=== PATIENT | female | born 1935 | race Caucasian/White ===

== ENCOUNTER → 2016-07-08 | Outpatient (CLI) | payer MEDICARE, OTHER ==
--- NOTE | 2016-07-08 17:32 | RAD ---
Indication low back pain. Axial images were obtained through the lumbar spine and reformatted in the coronal and sagittal planes. Note is made of a similar examination 05/12/2015. Again seen is a transitional segment. The lumbar segments will be referenced as they were on the previous exam. vertebral height is well maintained. There is no significant disc space narrowing seen at any level. There is vacuum disc phenomenon noted at L5-6, L4-5 and L3-4. This represents a new finding compared to the previous exam. Facet degenerative changes are noted in the lower lumbar spine. An acute finding is not seen. T12-L1 appears unremarkable. L1-2 appears normal. L2-3 appears unremarkable. There is no significant canal or neural foraminal narrowing at L3-4. At L4-5 there is some ligamentum flavum hypertrophy and there is slight disc bulging. There is no significant neural foraminal encroachment. There is probable minimal canal narrowing at this level. At L4-5 similar findings are seen. There is some ligamentum flavum hypertrophy and disc bulging again with suspected mild narrowing of the canal. The transitional segment from L6 through the sacrum is unremarkable. The lung bases are clear. There is a probable small adenoma seen associated with the right adrenal gland. A significant finding is not seen in the visualized abdomen or pelvis. IMPRESSION: Spondylitic changes. No acute findings seen. There is a transitional segment. Mild canal narrowing is likely in the lower lumbar spine. If additional imaging evaluation is warranted an MRI examination could be obtained PQRS Compliance Statement: One or more of the following individualized dose reduction techniques were utilized for this examination: 1. Automated exposure control 2. Adjustment of the mA and/or kV according to patient size 3. Use of iterative reconstruction technique
== END | disposition home or self-care (01) ==
LOC: CT 15:33
PROVIDERS: ATTEND Family Medicine
DX: M54.16 Radiculopathy, lumbar region (principal); M46.86 Other specified inflammatory spondylopathies, lumbar region; Z95.0 Presence of cardiac pacemaker
CPT/HCPCS: 72131

== ENCOUNTER → 2016-12-29 | Outpatient (CLI) | payer MEDICARE, OTHER ==
[2016-12-29 08:45] LABS: CALCIUM 9.3 mg/dL (8.5-10.1); CREATININE 0.8 mg/dL (0.6-1.0); POTASSIUM 4.3 mmol/L (3.5-5.1)
[2016-12-30 04:11] LABS: HEMOGLOBIN A1C 5.6 % (4.8-5.6)
== END | disposition home or self-care (01) ==
LOC: SPEC 07:53
PROVIDERS: ATTEND Family Medicine
DX: Z00.00 Encounter for general adult medical examination without abnormal findings (principal); E78.2 Mixed hyperlipidemia; E78.00 Pure hypercholesterolemia, unspecified
CPT/HCPCS: 36415; 80048; 80061; 82306; 83036

== ENCOUNTER → 2017-01-10 | Outpatient (CLI) | payer MEDICARE, OTHER ==
--- NOTE | 2017-01-11 08:27 | RAD ---
CT study of the cervical spine without contrast History: Radicular pain. Technique: Noncontrast helical CT scanning of the cervical spine was performed. Multiplanar 2-D reconstructions were generated. PQRS Compliance Statement: One or more of the following individualized dose reduction techniques were utilized for this examination: 1. Automated exposure control 2. Adjustment of the mA and/or kV according to patient size 3. Use of iterative reconstruction technique Comparison: None available. Findings: No acute fracture or discitis or osteolytic process or prevertebral soft tissue swelling is evident. No anterolisthesis is seen. No perching of facet joints is seen. There is mild degenerative osteoarthritis of the facet joints. There is mild degenerative disc space narrowing and endplate spurring at C4-5 and C5-6. No significant neural foraminal narrowing is seen. No significant focal disc protrusion is seen on this nonmyelographic study. No significant spinal canal stenosis is evident. IMPRESSION: Mild degenerative cervical spondylosis.
== END | disposition home or self-care (01) ==
LOC: CT 15:07
PROVIDERS: ATTEND Family Medicine
DX: M47.22 Other spondylosis with radiculopathy, cervical region (principal); M53.82 Other specified dorsopathies, cervical region
CPT/HCPCS: 72125

== ENCOUNTER → 2018-02-23 | Outpatient (CLI) | payer MEDICARE, OTHER ==
--- NOTE | 2018-02-23 16:42 | RAD ---
EXAM: CT lumbar spine without IV contrast CLINICAL HISTORY:LUMBAR STENOSIS, BILAT FEET TINGLING COMPARISON: None available. TECHNIQUE: Helical CT was performed through the lumbar spine. Axial, coronal and sagittal reformatted images were generated. PQRS compliance statement - One or more of the following individualized dose reduction techniques were utilized for this study: 1. Automated exposure control 2. Adjustment of the mA and/or kV according to patient size 3. Use of iterative reconstruction technique FINDINGS: For the purposes of this report, the very first vertebral body without residual be labeled T for transitional. Subsequently there are 5 nonrib-bearing lumbar-type vertebral bodies. Mild straightening of the normal lumbar lordosis. There is approximate 5 mm anterolisthesis of L4 on L5. This is new when compared to prior CT 07/08/2016. Vertebral body heights are preserved. Postoperative changes are seen at L4 with partial associated facet resection. Overlying soft tissue changes are seen. Mild L1-2 intervertebral disc height loss. L1-L2: No significant central canal stenosis or neural foraminal narrowing. L2-L3: Diffuse circumferential disc bulge and ligamentum flavum hypertrophy results in mild central canal stenosis without significant neural foraminal narrowing. L3-L4: Mild diffuse circumferential disc bulge with prominent ligamentum flavum hypertrophy and mild facet degenerative changes result in moderate central canal stenosis and mild bilateral neural foraminal narrowing. L4-L5: Grade 1 anterolisthesis with diffuse mild disc bulge with ligamentum flavum hypertrophy and facet degenerative changes results in mild to moderate central canal stenosis and mild bilateral neural foraminal narrowing. L5-S1: No significant central canal stenosis or neural foraminal narrowing. A 1.6 cm right adrenal nodule measures fat density likely lipid rich adenoma. IMPRESSION: 1. Transitional anatomy. For the purposes of this report the first nonrib-bearing vertebral body will labeled transitional- T, with an additional 5 nonrib-bearing lumbar-type vertebral bodies. 2. Postoperative changes with partial facet resection at L4. 3. Grade 1 anterolisthesis of L4 on L5. 4. Multilevel degenerative changes as above. Electronically signed by: Pernell Hebert MD (02/23/2018 4:38 PM) [facility]
== END | disposition home or self-care (01) ==
LOC: CT 13:55
PROVIDERS: ATTEND Neurological Surgery
DX: M48.062 Spinal stenosis, lumbar region with neurogenic claudication (principal); M43.16 Spondylolisthesis, lumbar region; M51.36 Other intervertebral disc degeneration, lumbar region; E27.8 Other specified disorders of adrenal gland
CPT/HCPCS: 72131

== ENCOUNTER → 2018-03-08 | Outpatient (CLI) | payer MEDICARE, OTHER ==
--- NOTE | 2018-03-08 11:29 | RAD ---
EXAM: AP, lateral and lumbosacral spot views with lateral flexion/extension views of the lumbar spine DATE: 03/08/2018 10:34 AM INDICATION: back pain COMPARISON: CT lumbar spine 02/23/2018 FINDINGS: In keeping with prior numeration on prior CT, the very first vertebral body without ribs will be labeled T for transitional. Subsequently there are 5 nonrib-bearing lumbar-type vertebral bodies. Vertebral body heights are preserved. Compared to prior CT, there is now progressive anterolisthesis of L4 on L5. This measures 1.3 cm on the neutral image, and 1.4 cm on both the flexion and extension images. Advanced facet degenerative changes at L3-4, L4-5 and L5-S1. Small endplate osteophytes are seen. Mild to moderate multilevel disc height loss. Atherosclerotic vascular calcifications are seen. IMPRESSION: 1. Transitional anatomy. For the purposes of this report the first nonrib-bearing vertebral body will labeled transitional- T, with an additional 5 nonrib-bearing lumbar-type vertebral bodies. 2. Grade 2 anterolisthesis of L4 on L5 which is progressed compared to prior CT from 02/23/2018. However there is no dynamic instability (1.3 cm on the neutral image and 1.4 cm on flexion/extension images). 3. Laminectomy changes are seen at L4. Electronically signed by: Pernell Hebert MD (03/08/2018 11:25 AM) [facility]
== END | disposition home or self-care (01) ==
LOC: RAD 10:24
PROVIDERS: ATTEND Neurological Surgery
DX: M47.896 Other spondylosis, lumbar region (principal); M47.897 Other spondylosis, lumbosacral region; M25.78 Osteophyte, vertebrae; I70.0 Atherosclerosis of aorta; R29.890 Loss of height
CPT/HCPCS: 72100

== ENCOUNTER → 2018-07-26 | Outpatient (CLI) | payer MEDICARE, OTHER ==
--- NOTE | 2018-07-26 14:18 | RAD ---
Lumbar spine, 3 views, 07/26/2018: HISTORY: Postop spinal fusion Comparison is made to a study from 03/08/2018. Bilateral pedicle screws have been placed at L4 and L5 attached to longitudinally oriented posterior fixation rods. A partially radiopaque disc spacer is present at L4-5. There is a moderate grade 1-2 anterolisthesis at L4-5, perhaps slightly improved since the preoperative study. There are moderate scattered spurs in the lumbar spine. Moderate facet joint arthropathy is present in the lower lumbar spine. No fracture or new subluxation is evident. Aortic calcific plaquing is present. IMPRESSION: 1. Interval posterior spinal fusion and instrumentation at L4-5. 2. Moderate residual anterolisthesis at L4-5. 3. Moderate scattered degenerative changes. Electronically signed by: Wayne Brennan MD (07/26/2018 2:15 PM) [facility]
== END | disposition home or self-care (01) ==
LOC: RAD 13:33
PROVIDERS: ATTEND Neurological Surgery
DX: M47.816 Spondylosis without myelopathy or radiculopathy, lumbar region (principal); Z98.1 Arthrodesis status
CPT/HCPCS: 72100

== ENCOUNTER → 2018-08-08 | Outpatient (CLI) | payer MEDICARE, OTHER ==
--- NOTE | 2018-08-08 13:01 | CARD ---
MR#: [id number] Date of Study: 08/08/2018 Ordering Physician: ROBE ELLISON, Referring Physician: ROBE ELLISON, Tech: Sophia Elmore APPROVED REPORT EXAM: Two-dimensional and M-mode echocardiogram with Doppler and color Doppler. INDICATION CAD Sick Sinus Syndrome Surgery/Intervention Pacemaker: RISK FACTORS Hypertension 2D DIMENSIONS RVDd3.1 (2.9-3.5cm)Left Atrium(2D)3.9 (1.6-4.0cm) IVSd1.3 (0.7-1.1cm)Aortic Root(2D)3.2 (2.0-3.7cm) LVDd4.9 (3.9-5.9cm)LVOT Diameter2.1 (1.8-2.4cm) PWd1.2 (0.7-1.1cm)LVDs2.8 (2.5-4.0cm) FS (%) 42.6 %SV81.4 ml LVEF(%)73.5 (>50%) Aortic Valve AoV Peak Bautista.135.9cm/sAoV VTI28.1cm AO Peak GR.7.4mmHgLVOT Peak Bautista.123.4cm/s LVOT VTI 22.85cmAO Mean GR.4mmHg GEMA (VMAX)3.79so5AZD (VTI)2.76cm2 Mitral Valve MV E Xgqaihtf83.9cm/sMV DECEL CGZR201ak MV A Okcaerdq81.0cm/sE/A Ratio0.9 Pulmonary Valve PV Peak Fsufjhdj072.2cm/sPV Peak Grad.5mmHg Tricuspid Valve TR P. Yqnjigaj853ez/sRAP KRHJPQMP6acEs TR Peak Gr.38gmSsNBPJ57hyDp Pulmonary Vein S1 Lbvhejzu97.8cm/sD2 Bxboqnty37.0cm/s LEFT VENTRICLE The left ventricle is normal size. There is moderate concentric left ventricular hypertrophy. The lef t ventricular systolic function is normal and the ejection fraction is within normal range. The Eject ion Fraction is >55%. Wall motion consistent with conduction abnormality. Otherwise grossly normal wa ll motion. Transmitral Doppler flow pattern is Grade II-pseudonormal filling dynamics. RIGHT VENTRICLE The right ventricle is mildly dilated. There is normal right ventricular wall thickness. The right ve ntricular systolic function is normal. There is a pacemaker lead in the right ventricle. ATRIA The left atrium size is normal. There is a pacemaker lead seen in the right atrium. The right atrium size is normal. The interatrial septum is intact with no evidence for an atrial septal defect or dickson nt foramen ovale as noted on 2-D or Doppler imaging. AORTIC VALVE The aortic valve is normal in structure and function. Doppler and Color Flow revealed no significant aortic regurgitation. There is no significant aortic valvular stenosis. MITRAL VALVE The mitral valve is normal in structure and function. There is no evidence of mitral valve prolapse. There is no mitral valve stenosis. Doppler and Color-flow revealed trace mitral regurgitation. TRICUSPID VALVE The tricuspid valve is normal in structure and function. Doppler and Color Flow revealed no tricuspid valve regurgitation noted with an estimated PAP of 25 mmHg. There is no tricuspid valve stenosis. PULMONIC VALVE The pulmonic valve is not well visualized. Doppler and Color Flow revealed no pulmonic valvular regur gitation. GREAT VESSELS The aortic root is normal in size. The IVC is normal in size and collapses >50% with inspiration. PERICARDIAL EFFUSION There is no evidence of significant pericardial effusion. Critical Notification Critical Value: No <Conclusion> The left ventricular systolic function is normal and the ejection fraction is within normal range. Th e Ejection Fraction is >55%. Wall motion consistent with conduction abnormality. Otherwise grossly normal wall motion. There is a pacemaker lead in the right ventricle. Signed by : Sam Ballesteros, Electronically Approved : 08/08/2018 13:00:17
== END | disposition home or self-care (01) ==
LOC: ECHO 07:14
PROVIDERS: ATTEND Internal Medicine Cardiovascular Disease
DX: I25.10 Atherosclerotic heart disease of native coronary artery without angina pectoris (principal); I49.5 Sick sinus syndrome; I11.9 Hypertensive heart disease without heart failure; Z95.0 Presence of cardiac pacemaker
CPT/HCPCS: 93306

== ENCOUNTER → 2019-03-15 | Outpatient (CLI) | payer MEDICARE, OTHER ==
[~2019-03-15] MED LIST: REGADENOSON 0.4 MG/5 ML DISP.SYRIN. IV ONE
--- NOTE | 2019-03-15 13:14 | RAD ---
MR#: [id number] Date of Study: 03/15/2019 Ordering Physician: ROBE ELLISON Referring Physician: CHLOE GROVER Tech: SY Smith APPROVED REPORT Test Type: Pharmacological Stress Nurse/Tech: SY Smith Test Indications: CAD Cardiac History: pacemaker Medications: see EHR Medical History: see see EHR Resting ECG: SR Resting Heart Rate: 60 bpm Resting Blood Pressure: 162/49mmHg Pretest Chest Pain: None Nurse/Tech Notes Consent: The procedure was explained to the patient in lay terms. Informed consent was witnessed. Enmanuel eout was entered into [employer]. History and Stress Test performed by SY Smith Pharm. Details Pharmacologic stress testing was performed using 0.4mg per 5ml of regadenoson given intravenously ove r 7-10 seconds. POST EXERCISE Reason for Termination: Infusion complete Max HR: 68 bpm Max Blood Pressure: 153/49mmHg Blood Pressure response to exercise: Normal blood pressure response during stress. Chest Pain: No. INTERPRETATION Stress EKG Conclusion: No changes with stress Imaging Protocol IMAGE PROTOCOL: Rest Tc-99m/stress Tc-99m 1 day Rest: Stress: Viability: Radiopharm.Tc99m AjtpupqtzOh48x Sestamibi Syel95hZm 33mCi Duration 15min. 10min. Img Date 03/15/2019 03/15/2019 Inj-Img Dsdm13ymy. 60min. Rest Admin Site:IV - Left AntecubitalAdministrator: SY Smith Stress Admin Site: IV - Left AntecubitalAdministrator: SY Smith STRESS DATA End Diast. Vol.32.0mlAv. Heart Rate61.0bpm End Syst. Vol.25.0mlCO Index BSA0.0L/min Myocardial Mass75.0gEject. Hljwnkto35.0% Stress Rates Pk. Fill Rate1.72EDV/secLVtime Pk. Fill 110.85msec Pk. Empty Rate1.32ESV/secLVtime Pk. Akuth701.02msec 03/09 Pk. Fill0.78EDV/sec Stress Scores Regional WT3.00Summed WT51.00 Regional WM4.00Summed WM67.00 LV Perfusion Non-diagnostic stress images due to subdiaphragmatic attenuation artifact. Normal resting perfusion. Wall Motion Unable to accurately determine wall motion due to artifact. LV Perf. Quant 17 Seg. SSS8.00 17 Seg. SRS0.00 17 Seg. SDS8.00 Stress Defect Extent (% LAD)6.30Rest Defect Extent (% LAD)0.00Rev. Defect Extent (% LAD)6.30 Stress Defect Extent (% LCX) 61.30Rest Defect Extent (% LCX)0.00Rev. Defect Extent (% LCX)61.30 Stress Defect Extent (% RCA)0.00Rest Defect Extent (% RCA)0.00Rev. Defect Extent (% RCA)0.00 Stress Defect Extent (% RAMIN)18.90Rest Defect Extent (% RAMIN)0.00Rev. Defect Extent (% RMAIN)18.90 Other Information Quality:Poor Risk Assessment: Indeterminate. Conclusion 1. Normal resting EKG and normal response to vasodilator infusion 2. Normal resting perfusion. 3. Non-diagnostic stress images due to severe subdiaphragmatic artifact. Recommendations Consider repeat stress imaging versus other modalities. Signed by : Sam Ballesteros, Electronically Approved : 03/15/2019 13:14:26
== END | disposition home or self-care (01) ==
LOC: NM 08:00
PROVIDERS: ATTEND Internal Medicine Cardiovascular Disease
DX: I25.10 Atherosclerotic heart disease of native coronary artery without angina pectoris (principal)
CPT/HCPCS: 78452; 93017; A9500; J2785

== ENCOUNTER → 2020-07-02 | Outpatient (CLI) | payer MEDICARE, OTHER ==
--- NOTE | 2020-07-02 14:03 | RAD ---
EXAM: Lumbar spine CT without contrast. HISTORY: Left lower extremity radiculopathy. TECHNIQUE: Computed tomographic images of the lumbar spine were obtained without contrast. Multiplana r reformatting was performed. *One or more of the following individualized dose reduction techniques were utilized for this examina tion: 1. Automated exposure control. 2. Adjustment of the mA and/or kV according to patient size. 3. Use of iterative reconstruction technique. COMPARISON: 02/23/2018 FINDINGS: There is a transitional lumbosacral segment. This is considered L6 for this dictation. Base d on this numbering system, there is instrumented posterior spinal fusion and disc space fusion devic e placement at L5-L6. There is no significant lucency surrounding the instrumentation to suggest loos ening. There is grade 1 anterolisthesis of L5 on L6, measuring 5 mm. There is mild retrolisthesis of L1 on L2, L2 on L3, L3 on L4 and L4 and L5. There is multilevel endplate remodeling with disc space n arrowing and vacuum phenomenon. There is relative preservation of the disc space at L6-S1. There is n o fracture or suspicious osseous lesion. There is suspected cortical scarring involving the upper yue e the right kidney. There is aortobiiliac atherosclerosis. The sacroiliac joints are intact. At L1-L2, there is endplate remodeling. There is mild bilateral facet arthropathy. There is no stenos is. At L2-L3, there is a disc bulge and endplate osteophytosis. There is mild bilateral facet arthropathy . There is no stenosis. At L2-L3, there is a disc bulge and endplate osteophytosis. There is mild bilateral facet arthropathy . There is mild left foraminal stenosis. There is mild central canal stenosis. At L4-L5, there is a disc bulge and endplate osteophytosis. There is mild bilateral facet arthropathy . There is mild left foraminal stenosis. There is moderate central canal stenosis. At L5-L6, there is a right foraminal to extra foraminal disc protrusion and osteophyte complex superi mposed on a disc bulge and endplate osteophytosis. There is instrumented fusion at this level. There is grade 1 anterolisthesis. There is mild right and moderate left foraminal stenosis. There is mild c entral canal stenosis. There is a small fluid collection within the posterior midline back subcutaneo us fat this level measuring 3.0 cm. At L6-S1, there is a left foraminal to lateral disc osteophyte complex superimposed on a disc bulge a nd left lateral predominant endplate osteophytosis. There is mild left foraminal stenosis. IMPRESSION: 1. Transitional lumbosacral segment, considered L6 for this dictation. 2. Instrumented fusion at L5 to L6. There is grade 1 anterolisthesis at this level. No convincing ins trumentation loosening is seen. There is suspected postoperative seroma within the midline posterior back subcutaneous fat at this level. 3. Multilevel degenerative change involving the lumbar spine, described in detail above. This results in stenosis of aforementioned levels. Electronically signed by: Briana Resendez MD (07/02/2020 2:00 PM) [id number]
== END ==
LOC: CT 08:38
PROVIDERS: ATTEND Family Medicine
DX: M47.26 Other spondylosis with radiculopathy, lumbar region (principal); M48.061 Spinal stenosis, lumbar region without neurogenic claudication
CPT/HCPCS: 72131

== ENCOUNTER → 2020-08-28 | Outpatient (CLI) | payer MEDICARE, OTHER ==
--- NOTE | 2020-08-28 14:31 | RAD ---
EXAM: Nuclear gastric emptying scan. HISTORY: Epigastric pain. Bloating. COMPARISON: None. TECHNIQUE: Serial static images were obtained over the stomach following oral administration of 1.8 m Ci 99m-Tc sulfur colloid. FINDINGS: The stomach empties into the small bowel without evidence of reflux in the area of the esop hagus. Gastric retention percents: 1 hour 27% (normal range 34.8-91%) 2 hour 8% (normal range 2.7-60%) 3 hour 0% (normal range 0.5-28%) The estimated time for half emptying of gastric contents, i.e. 'gastric emptying time' is 41 minutes (normal is 66 +/- 22 minutes). IMPRESSION: Normal gastric emptying scan. Electronically signed by: Briana Resendez MD (08/28/2020 2:29 PM) [id number]
== END ==
LOC: NM 07:49
PROVIDERS: ATTEND Internal Medicine Gastroenterology
DX: R10.13 Epigastric pain (principal); R14.0 Abdominal distension (gaseous)
CPT/HCPCS: 78264; A9541

== ENCOUNTER → 2020-09-02 | Outpatient (CLI) | payer MEDICARE, OTHER ==
--- NOTE | 2020-09-02 13:50 | CARD ---
MR#: [id number] Date of Study: 09/02/2020 Ordering Physician: ROBE RICHEY, Referring Physician: ROBE RICHEY, Tech: Sophia Elmore [facility] APPROVED REPORT EXAM: Two-dimensional and M-mode echocardiogram with Doppler and color Doppler. Other Information Quality : Average INDICATION Dyspnea 2D DIMENSIONS RVDd3.1 (2.9-3.5cm)Left Atrium(2D)3.9 (1.6-4.0cm) IVSd1.1 (0.7-1.1cm)Aortic Root(2D)3.0 (2.0-3.7cm) LVDd5.6 (3.9-5.9cm)LVOT Diameter2.0 (1.8-2.4cm) PWd1.1 (0.7-1.1cm)LVDs3.8 (2.5-4.0cm) FS (%) 32.3 %SV91.9 ml LVEF(%)59.9 (>50%) Aortic Valve AoV Peak Bautista.147.4cm/sAoV VTI33.2cm AO Peak GR.8.7mmHgLVOT Peak Bautista.116.9cm/s LVOT VTI 28.69cmAO Mean GR.4mmHg GEMA (VMAX)2.88gi9NXN (VTI)2.65cm2 Mitral Valve MV E Knitrnxa491.2cm/sMV DECEL OMFC806px MV A Pmgijxdr55.9cm/sE/A Ratio1.7 Pulmonary Valve PV Peak Xhwoxvjp24.5cm/sPV Peak Grad.3mmHg Tricuspid Valve TR P. Zwdxlwxc463mj/sRAP GXCMXIQR9ywZn TR Peak Gr.02myNzZHGU96erSv Pulmonary Vein S1 Sarjnalt53.4cm/sD2 Fplqtegl99.6cm/s LEFT VENTRICLE The left ventricle is normal size. There is mild concentric left ventricular hypertrophy. The left ve ntricular systolic function is normal. The Ejection Fraction is 55-60%. There is normal LV segmental wall motion. The left ventricular diastolic function and filling is normal for age. RIGHT VENTRICLE The right ventricle is normal size. There is normal right ventricular wall thickness. The right ventr icular systolic function is normal. ATRIA The left atrium size is normal. The right atrium size is normal. The interatrial septum is intact wit h no evidence for an atrial septal defect or patent foramen ovale as noted on 2-D or Doppler imaging. AORTIC VALVE The aortic valve is normal in structure and function. Doppler and Color Flow revealed no significant aortic regurgitation. There is no significant aortic valvular stenosis. Calculated aortic valve area is 2.9 cm2 with maximum pressure gradient of 9 mmHg and mean pressure gradient of 5 mmHg. MITRAL VALVE The mitral valve is normal in structure and function. There is no evidence of mitral valve prolapse. There is no mitral valve stenosis. Doppler and Color-flow revealed trace mitral regurgitation. TRICUSPID VALVE The tricuspid valve is normal in structure and function. Doppler and Color Flow revealed trace tricus pid regurgitation with an estimated PAP of 35 mmHg. There is no tricuspid valve stenosis. PULMONIC VALVE The pulmonary valve is normal in structure and function. Doppler and Color Flow revealed trace pulmon ic valvular regurgitation. GREAT VESSELS The aortic root is normal in size. The ascending aorta is normal in size. The IVC is normal in size a nd collapses >50% with inspiration. PERICARDIAL EFFUSION There is no evidence of significant pericardial effusion. Critical Notification Critical Value: No <Conclusion> The left ventricular systolic function is normal. The Ejection Fraction is 55-60%. There is normal LV segmental wall motion. Trace mitral regurgitation. Trace tricuspid regurgitation with an estimated PAP of 35 mmHg. There is no evidence of significant pericardial effusion. Signed by : Robe Richey, Electronically Approved : 09/02/2020 13:49:47
== END ==
LOC: ECHO 10:28
PROVIDERS: ATTEND Internal Medicine Cardiovascular Disease
DX: I51.7 Cardiomegaly (principal); I49.5 Sick sinus syndrome
CPT/HCPCS: 93306

== ENCOUNTER → 2020-10-29 | Outpatient (CLI) | payer MEDICARE, OTHER ==
--- NOTE | 2020-10-29 23:07 | RAD ---
MR#: [id number] Date of Study: 10/29/2020 Ordering Physician: ROBE ELLISON Referring Physician: CHLOE GROVER Tech: RT Samir (R) (N) APPROVED REPORT Test Type: Pharmacological Stress Nurse/Tech: RT Samir (R) (N) / Alis Benjamin Test Indications: Sick Sinus syndome Cardiac History: Pacemaker Medications: See EHR Medical History: See Electronic Medical Record Resting Heart Rate: 61 bpm Resting Blood Pressure: 154/70mmHg Pretest Chest Pain: No chest pain Pharm. Details Pharmacologic stress testing was performed using 0.4mg per 5ml of regadenoson given intravenously ove r 7-10 seconds. POST EXERCISE Reason for Termination: Infusion complete Max HR: 69 bpm Max Blood Pressure: 157/54mmHg Blood Pressure response to exercise: Normal blood pressure response during stress. Heart Rate response to exercise: Normal Chest Pain: No. Arrhythmia: No. ST Change: No. INTERPRETATION Stress EKG Conclusion: No evidence of stress induced EKG changes. Imaging Protocol IMAGE PROTOCOL: Rest Tc-99m/stress Tc-99m 1 day Rest: Stress: Viability: Radiopharm.Tc99m EgeiwccwaMy37h Sestamibi Eoun97mRb 33mCi Duration 15min. 15min. Img Date 10/29/2020 10/29/2020 Inj-Img Dkup90jlg. 50min. Rest Admin Site:IV - Left AntecubitalAdministrator: RT Samir (R)(N) Stress Admin Site: IV - Left AntecubitalAdministrator: RT Samir (R)(N) STRESS DATA End Diast. Vol.66.0mlAv. Heart Rate61.0bpm End Syst. Vol.12.0mlCO Index BSA0.0L/min Myocardial Vdec578.0gEject. Lhtpnzlq17.0% Stress Rates Pk. Fill Rate3.94EDV/secLVtime Pk. Fill 230.30msec Pk. Empty Rate4.42ESV/secLVtime Pk. Znoim585.76msec 1/3 Pk. Fill1.18EDV/sec Stress Scores Regional WT0.00Summed WT0.00 Regional WM0.00Summed WM0.00 The rest and stress images show normal perfusion, normal contraction and thickening. LV Perf. Quant 17 Seg. SSS0.00 17 Seg. SRS1.00 17 Seg. SDS0.00 Stress Defect Extent (% LAD)0.00Rest Defect Extent (% LAD)0.00Rev. Defect Extent (% LAD)0.00 Stress Defect Extent (% LCX) 0.00Rest Defect Extent (% LCX)0.00Rev. Defect Extent (% LCX)0.00 Stress Defect Extent (% RCA)0.00Rest Defect Extent (% RCA)0.00Rev. Defect Extent (% RCA)0.00 Stress Defect Extent (% RAMIN)0.00Rest Defect Extent (% RAMIN)0.00Rev. Defect Extent (% RAMIN)0.00 Other Information Quality:Average Risk Assessment: Low Risk Conclusion 1. No evidence of EKG changes with stress testing. 2. Normal perfusion at stress/rest. 3. Low risk study. 4. EF > 60%. Signed by : Sam Ballesteros, Electronically Approved : 10/29/2020 23:07:01
== END ==
LOC: NM 08:07
PROVIDERS: ATTEND Internal Medicine Cardiovascular Disease
DX: I49.5 Sick sinus syndrome (principal)
CPT/HCPCS: 78452; 93017; A9500; J2785

== ENCOUNTER → 2020-11-19 | Outpatient (CLI) | payer MEDICARE, OTHER ==
--- NOTE | 2020-11-19 11:25 | RAD ---
EXAM: CT ABDOMEN/PELVIS WITHOUT CONTRAST. HISTORY: Abdominal pain. TECHNIQUE: Computed tomography of the abdomen and pelvis was performed without intravenous contrast. One or more of the following individualized dose reduction techniques were utilized for this examinat ion: 1. Automated exposure control. 2. Adjustment of the mA and/or kV according to patient size. 3. Use of iterative reconstruction technique. COMPARISON: None. FINDINGS: Lung windows through the visualized portions of the bases reveal pacemaker leads in the rig ht atrium and right ventricle. There is a moderate hiatal hernia. Bone windows reveal no suspicious l esions. There are instrumented anterior and posterior fusion changes at L4-5, where there is grade 1 anterolisthesis. The gallbladder is surgically absent. The common duct measures 9 mm but tapers normally distally with out evidence of distal obstructing lesion. The liver, spleen, pancreas and left kidney are unremarkab le without contrast. There is a small cortical scar at the upper pole of the right kidney. A right ad renal nodule measures 15 x 14 mm and 0 Hounsfield units, consistent with a benign adenoma. The left a drenal gland is unremarkable. There are no pathologically enlarged lymph nodes. The uterus is surgically absent. Sigmoid and left c olonic diverticulosis is moderate to severe. There is no small bowel obstruction. A moderate midline hernia just superior to the umbilicus contains only fat. IMPRESSION: 1. Moderate hiatal hernia. 2. Moderate supraumbilical hernia containing only fat. 3. Mild extrahepatic biliary dilatation status post cholecystectomy. Correlate for cholestasis to ass ess significance. 4. 1.5 cm benign right adrenal adenoma. Electronically signed by: Amelia Jasmine MD (11/19/2020 11:23 AM) [facility]
--- NOTE | 2020-11-19 11:33 | RAD ---
EXAM: CT HEAD WITHOUT CONTRAST. HISTORY: Dizziness. TECHNIQUE: Computed tomography of the head was performed without intravenous contrast. One or more of the following individualized dose reduction techniques were utilized for this examination: 1. Automated exposure control. 2. Adjustment of the mA and/or kV according to patient size. 3. Use of iterative reconstruction technique. COMPARISON: None. FINDINGS: A partially calcified mass anteriorly in the left middle cranial fossa measures 2.2 x 1.8 c m. There is no significant mass effect. There is no intracranial hemorrhage. Hypoattenuation within the periventricular white matter indicate s mild chronic microangiopathic change. The ventricles are normal in size and position for patient ag e. The visualized paranasal sinuses appear clear. The orbits are unremarkable. The temporal bones are un remarkable. The calvarium reveals no suspicious lesions. There are atherosclerotic calcifications of the internal carotid arteries. IMPRESSION: 1. 2.2 cm partially calcified mass within the left middle cranial fossa, most likely a meningioma. MR I with and without contrast is recommended for further evaluation if the diagnosis is not already kno wn. Electronically signed by: Amelia Jasmine MD (11/19/2020 11:31 AM) [facility]
== END ==
LOC: CT 08:45
PROVIDERS: ATTEND Internal Medicine
DX: K44.9 Diaphragmatic hernia without obstruction or gangrene (principal); K42.9 Umbilical hernia without obstruction or gangrene; D35.01 Benign neoplasm of right adrenal gland; R22.0 Localized swelling, mass and lump, head; Z90.49 Acquired absence of other specified parts of digestive tract
CPT/HCPCS: 70450; 74176

== ENCOUNTER → 2021-05-15 | Outpatient (CLI) | payer MEDICARE, OTHER ==
--- NOTE | 2021-05-15 16:00 | RAD ---
PQRS Compliance Statement: One or more of the following individualized dose reduction techniques were utilized for this examinat ion: 1. Automated exposure control 2. Adjustment of the mA and/or kV according to patient size 3. Use of iterative reconstruction technique CT LUMBAR SPINE WO Clinical Indication: Reason: CHRONIC LOWER BACK PAIN, L4-5 FUSION 2018, 2019 / Spl. Instructions: / History: Comparison: CT lumbar spine without contrast July 02, 2020. TECHNIQUE: Helical CT imaging of the lumbar spine is performed without IV contrast. Findings: Transitional lumbosacral anatomy is redemonstrated, numbering scheme same as prior study. Transitiona l segment considered L6. There is stable posterior fusion of L5-L6 with disc space fusion device. No evidence of loosening is seen. There is unchanged grade 1 anterolisthesis of L5 on L6. There is unchanged grade 1 retrolisthesis of L4 on L5 and L3 on L4. The alignment is unchanged. There is multilevel vacuum disc phenomenon. No acu te fracture is seen. There are multilevel reactive endplate changes. L1/L2: There is mild facet hypertrophy. Central canal and neural foramina are widely patent. L2/L3: There is minimal disc osteophyte complex. The central canal is patent. Neural foramina are pat ent. L3/L4: There is broad-based posterior disc osteophyte complex and mild facet hypertrophy. There is mi ld central canal stenosis. The neural foramina are patent. L4/L5: Evaluation is mildly limited due to beam hardening artifact. There is small broad-based director [employer] ior disc osteophyte complex and facet hypertrophy and moderate ligamentum flavum redundancy. Central canal stenosis appears moderate. There is mild left and no significant right neural foraminal narrowi ng. Posterior paraspinal subcutaneous fluid at this level is unchanged. L5/L6: There is anterolisthesis at this level. There is probably mild central canal stenosis. There i s mild bilateral neural foraminal narrowing. L6/S1: There is minimal posterior disc bulge. There is mild facet hypertrophy. Mild ligamentum phlegm redundancy. The central canal is adequate. The neural foramina are patent. Small hiatal hernia. Stable small right adrenal adenoma. Atherosclerotic abdominal aorta. IMPRESSION: 1. Numbering scheme same as prior study. Transitional lumbosacral vertebral body considered L6. 2. Stable posterior fusion hardware of L5-S6. 3. No high-grade central canal stenosis or neural foraminal narrowing is identified. Electronically signed by: Fermin Macedo MD (05/15/2021 3:58 PM) [id number]
== END ==
LOC: CT 10:21
PROVIDERS: ATTEND Internal Medicine
DX: M47.817 Spondylosis without myelopathy or radiculopathy, lumbosacral region (principal); M51.27 Other intervertebral disc displacement, lumbosacral region; M25.78 Osteophyte, vertebrae; K44.9 Diaphragmatic hernia without obstruction or gangrene; D35.01 Benign neoplasm of right adrenal gland; I70.0 Atherosclerosis of aorta
CPT/HCPCS: 72131

== ENCOUNTER → 2021-05-15 | Outpatient (CLI) | payer MEDICARE, OTHER ==
[~2021-05-15] MED LIST changes: +IOHEXOL 300 MG/ML 75 ML VIAL. IV ONE; -REGADENOSON 0.4 MG/5 ML DISP.SYRIN. IV ONE
--- NOTE | 2021-05-15 16:17 | RAD ---
PQRS Compliance Statement: One or more of the following individualized dose reduction techniques were utilized for this examinat ion: 1. Automated exposure control 2. Adjustment of the mA and/or kV according to patient size 3. Use of iterative reconstruction technique CT ORBITS/SELLA WITH IV CONTRAST Clinical Indication: Reason: LOSS OF HEARING IN RIGHT YEAR 7 WEEKS AGO REDUCED DOSE CONTR / Spl. Ins tructions: / History: Comparison: CT head without contrast November 19, 2020. TECHNIQUE: Helical CT imaging of the orbits is performed after 60 cc of Omnipaque 300 IV contrast. Findings: In the anterior left middle cranial fossa there is a partially calcified extra-axial mass that homoge neously enhances. The mass measures 1.9 cm AP by 1.8 cm transverse by a 2.2 cm craniocaudal. The mass is stable to slightly larger compared to the prior study. There is no midline shift in the brain. The globes and orbits are intact. There is minimal mucosal thickening inferiorly in the left maxillar y sinus. The mastoid air cells are aerated. The external auditory canals are patent. The middle ear cavities a re clear. No ossicular chain abnormality is identified. The parotid glands are symmetric. No acute facial bone abnormality. The upper cervical spine alignmen t is maintained. IMPRESSION: 1. The globes and orbits are intact. 2. Not protocoled for its evaluation, no focal abnormality of the temporal bones is appreciated. 3. The probable meningioma of the anterior left middle cranial fossa is stable to slightly larger. Electronically signed by: Fermin Macedo MD (05/15/2021 4:14 PM) [id number]
== END ==
LOC: CT 10:17
PROVIDERS: ATTEND Otolaryngology
DX: H91.21 Sudden idiopathic hearing loss, right ear (principal)
CPT/HCPCS: 70481; Q9967